=== PATIENT | female | born 1985 | race Two or more races ===

== ENCOUNTER 2018-03-24 12:42 | Emergency (ER) | payer MEDICAID, OTHER ==
[~2018-03-24] VITALS: Ht 157.5 cm; Wt 68.0 kg
[2018-03-24 13:09] VITALS: BP 141/81
[2018-03-24] MEDS ORDERED: ACETAMINOPHEN 325 MG TAB PO ONE (13:15)
== END 2018-03-24 16:31 | disposition home or self-care (01) ==
LOC: ER 12:42
DX: J04.0 Acute laryngitis (principal); G89.29 Other chronic pain; M54.5 Low back pain
CPT/HCPCS: 72100

== ENCOUNTER 2021-03-22 11:54 | Emergency (ER) | payer MEDICAID, OTHER ==
[~2021-03-22] VITALS: Ht 154.9 cm; Wt 72.6 kg
[2021-03-22 12:06] VITALS: BP 130/93
== END 2021-03-22 15:47 | disposition home or self-care (01) ==
LOC: ER 11:56
DX: M25.512 Pain in left shoulder (principal); V49.9XXA Car occupant (driver) (passenger) injured in unspecified traffic accident, initial encounter; Y93.89 Activity, other specified; Y92.410 Unspecified street and highway as the place of occurrence of the external cause; Y99.8 Other external cause status
CPT/HCPCS: 73030